=== PATIENT | female | born 1980 | race African-American/Black ===

== ENCOUNTER 2017-03-19 18:30 | Emergency (ER) | payer OTHER ==
[2017-03-19 18:38] VITALS: BP 104/59; PULSE 76; TEMP 98; BMI 26.6
[2017-03-19 19:06] LABS: PH,URINE 5.5 (4.5-8); URINE APPEARANCE Slightly; URINE BILIRUBIN 1+ (NEGATIVE); URINE GLUCOSE (UA) Negative (NEGATIVE); URINE KETONE Trace (NEGATIVE); URINE LEUK ESTERASE Negative (NEGATIVE); URINE NITRITE Negative (NEGATIVE); URINE UROBILINOGEN 0.2 (0.2-1.0)
[2017-03-19 19:12] LABS: URINE BLOOD 3+ (NEGATIVE); URINE COLOR YELLOW; URINE PROTEIN 1+ (NEGATIVE)
[2017-03-19] MEDS ORDERED: SODIUM CHLORIDE 1,000 ML IV STA (19:30)
[2017-03-19] MEDS ORDERED: ONDANSETRON 4 MG/2 ML VIAL IVPB ONE (19:30)
[2017-03-19] MEDS ORDERED: FAMOTIDINE 20 MG/50 ML IVPB 50 ML IVPB ONE ×2 (19:30→20:12)
[2017-03-19 20:11] LABS: URINE RBC >100 /hpf (0-3)
[2017-03-19] MEDS ORDERED: ONDANSETRON 4 MG/2 ML VIAL ONE (20:13)
--- NOTE | 2017-03-19 20:18 | PDOC ---
History of Present Illness - General Chief Complaint: Vomiting/Diarrhea Stated Complaint: NAUSEA, VOMITING, DIARRHEA, CHILLS Time Seen by Provider: 03/19/17 19:16 - History of Present Illness Initial Comments: 03/19/17 20:15 "The patient is a 37 year old female with no significant past medical history who presents to the ED with complaints of vomiting and diarrhea since earlier today. The patient reports she developed chills and diffuse abdominal cramps 2 hours ago. She reports 2 episodes of nonbloody vomiting and 2 episodes of watery brown stool. She also reports lightheadedness associated with present symptoms. Patient notes she is currently on her menstrual period. Denies fever. Denies dysuria or changes in urinary output. Denies chest pain or palpitations. Denies cough or shortness of breath. Denies any other symptoms. " Past History - Past Medical History Allergies/Adverse Reactions: Allergies Allergy/AdvReac Type Severity Reaction Status Date / Time No Known Allergies Allergy Verified 03/19/17 18:33 Home Medications: Ambulatory Orders NK [No Known Home Medication] 03/19/17 - Reproductive History Is Patient Now?: No - Psycho/Social/Smoking Cessation Hx Anxiety: No Suicidal Ideation: No Smoking History: Never smoked Hx Alcohol Use: Yes (OCCASIONAL) Drug/Substance Use Hx: No Substance Use Type: None Review of Systems - Review of Systems Comments:: 03/19/17 20:16 " GENERAL/CONSTITUTIONAL + chills: No fever. No weakness. HEAD, EYES, EARS, NOSE AND THROAT: No change in vision. No ear pain or discharge. No sore throat. CARDIOVASCULAR: No chest pain or shortness of breath. RESPIRATORY: No cough, wheezing, or hemoptysis. GASTROINTESTINAL:+ vomiting, diarrhea, abdominal cramps. No constipation. GENITOURINARY: No dysuria, frequency, or change in urination. MUSCULOSKELETAL: No joint or muscle swelling or pain. No neck or back pain. SKIN: No rash NEUROLOGIC: No headache, vertigo, loss of consciousness ENDOCRINE: No increased thirst. No abnormal weight change. HEMATOLOGIC/LYMPHATIC: No anemia, easy bleeding, or history of blood clots. ALLERGIC/IMMUNOLOGIC: No hives or skin allergy." *Physical Exam - Vital Signs Last Vital Signs Temp Pulse Resp BP Pulse Ox 98.0 F 76 15 104/59 99 03/19/17 18:33 03/19/17 18:33 03/19/17 18:33 03/19/17 18:33 03/19/17 18:33 - Physical Exam Comments: 03/19/17 20:16 "GENERAL: Awake, alert, and fully oriented, in no acute distress HEAD: No signs of trauma EYES: PERRLA, EOMI, sclera anicteric, conjunctiva clear ENT: Auricles normal inspection, hearing grossly normal, nares patent, oropharynx clear without exudates. Moist mucosa NECK: Normal ROM, supple, no lymphadenopathy, JVD, or masses LUNGS: Breath sounds equal, clear to auscultation bilaterally. No wheezes, and no crackles HEART: Regular rate and rhythm, normal S1 and S2, no murmurs, rubs or gallops ABDOMEN: Soft, nontender, normoactive bowel sounds. No guarding, no rebound. No masses EXTREMITIES: Normal range of motion, no edema. No clubbing or cyanosis. No cords, erythema, or tenderness NEUROLOGICAL: Cranial nerves II through XII grossly intact. Normal speech, normal gait SKIN: Warm, Dry, normal turgor, no rashes or lesions noted. " ED Treatment Course - LABORATORY CBC & Chemistry Diagram: 03/19/17 19:00 03/19/17 19:00 - ADDITIONAL ORDERS Additional order review: Laboratory Results 03/19/17 19:00 Urine Color Yellow Urine Appearance Slightly Urine pH 5.5 Ur Specific [place] 1.025 Urine Protein 1+ H Urine Glucose (UA) Negative Urine Ketones Trace Urine Blood 3+ H Urine Nitrite Negative Urine Bilirubin 1+ H Urine Urobilinogen 0.2 Ur Leukocyte Esterase Negative Urine RBC >100 Urine WBC 3-5 Ur Epithelial Cells 0-3 Urine HCG, Qual Negative Medical Decision Making - Medical Decision Making 03/19/17 20:16 37 F with N+V+D x 2 hours. Likely viral gastroenteritis. Pt with completely benign abdominal exam. No lower abdominal tenderness to suggest pelvic pathology. - Labs, UA - IVF, GI cocktail - PO challenge 03/19/17 22:20 CBC,CMP WBC 12.9 K/mm3 (4.0-10.8) H 03/19/17 19:00 RBC 4.06 M/mm3 (3.60-5.2) 03/19/17 19:00 Hgb 13.1 GM/dl (10.7-15.3) 03/19/17 19:00 Hct 40.5 % (32.4-45.2) 03/19/17 19:00 MCV 99.6 fl (80-96) H 03/19/17 19:00 MCH 32.2 pg (25.7-33.7) 03/19/17 19:00 MCHC 32.3 g/dl (32.0-36.0) 03/19/17 19:00 RDW 12.5 % (11.6-15.6) 03/19/17 19:00 Plt Count 244 K/MM3 (134-434) 03/19/17 19:00 MPV 10.3 fl (7.5-11.1) 03/19/17 19:00 Neutrophils % 85.9 % (42.8-82.8) H 03/19/17 19:00 Lymphocytes % 11.2 % (8-40) 03/19/17 19:00 Monocytes % 2.8 % (3.8-10.2) L 03/19/17 19:00 Eosinophils % 0.1 % (0-4.5) 03/19/17 19:00 Basophils % 0.0 % (0-2.0) 03/19/17 19:00 Sodium 134 mmol/L (136-145) L 03/19/17 19:00 Potassium 4.0 mmol/L (3.5-5.1) 03/19/17 19:00 Chloride 100 mmol/L (98-107) 03/19/17 19:00 Carbon Dioxide 25 mmol/L (22-28) 03/19/17 19:00 Anion Gap 9 (8-16) 03/19/17 19:00 BUN 18 mg/dl (7-18) 03/19/17 19:00 Creatinine 0.8 mg/dl (0.6-1.3) 03/19/17 19:00 Creat Clearance w eGFR > 60 (>60) 03/19/17 19:00 Random Glucose 103 mg/dl (74-106) 03/19/17 19:00 Calcium 8.4 mg/dl (8.4-10.2) 03/19/17 19:00 Total Bilirubin 0.2 mg/dl (0.2-1.0) 03/19/17 19:00 AST 22 U/L (10-42) 03/19/17 19:00 ALT 13 U/L (10-40) 03/19/17 19:00 Alkaline Phosphatase 55 U/L (32-92) 03/19/17 19:00 Total Protein 6.9 g/dl (6.4-8.3) 03/19/17 19:00 Albumin 3.5 g/dl (3.5-5.0) 03/19/17 19:00 Lipase 31 U/L (22-51) 03/19/17 19:00 Pt reassessed s/p fluids and GI cocktail - now feels much better, has not vomited since being in ER. Able to tolerate PO. Repeat Abdominal exam benign. Stable for DC home. *DC/Admit/Observation/Transfer Diagnosis at time of Disposition: Gastroenteritis - Discharge Dispostion Disposition: HOME Condition at time of disposition: Good Admit: No - Patient Instructions Printed Discharge Instructions: Viral Gastroenteritis Additional Instructions: Drink plenty of fluids to stay hydrated. Follow up with your primary care doctor in 1-2 weeks. If you experience severe abdominal pain, persistent nausea and vomiting, or any other concerning symptoms, return to the ER immediately. - Post Discharge Activity Work/School Note: Back to Work - Attestations Physician Attestion: 03/19/17 22:23 I, Dr. Gee Corrales MD, attest that this document has been prepared under my direction and personally reviewed by me in its entirety. I further attest, that it accurately reflects all work, treatment, procedures and medical decision -making performed by me.
[2017-03-19 20:27] LABS: EOSINOPHIL 0.1 % (0-4.5); MCH 32.2 pg (25.7-33.7); MCHC 32.3 g/dl (32.0-36.0); MEAN CELL VOLUME 99.6 fl (80-96); MEAN PLT VOLUME 10.3 fl (7.5-11.1); NEUTROPHILS 85.9 % (42.8-82.8); PLATELET COUNT 244 K/MM3 (134-434); RDW 12.5 % (11.6-15.6); WHITE BLOOD COUNT 12.9 K/mm3 (4.0-10.8)
[2017-03-19 20:39] LABS: ALBUMIN 3.5 g/dl (3.5-5.0); ALK PHOS 55 U/L (32-92); ANION GAP 9 (8-16); BILIRUBIN,TOTAL 0.2 mg/dl (0.2-1.0); CALCIUM 8.4 mg/dl (8.4-10.2); CO2 25 mmol/L (22-28); CREATININE 0.8 mg/dl (0.6-1.3); GLUCOSE,RANDOM 103 mg/dl (74-106); SGOT/AST 22 U/L (10-42); SGPT/ALT 13 U/L (10-40); TOT PROT 6.9 g/dl (6.4-8.3)
[2017-03-19] MEDS ORDERED: MAG HYDROX/AL HYDROX/SIMETH 30 ML UNIT-DOSE CUP ONE (22:54)
== END 2017-03-19 22:27 | disposition home or self-care (01) ==
LOC: FER 18:30
PROC: 3E033GC Introduction of Other Therapeutic Substance into Peripheral Vein, Percutaneous Approach (ICD-10-PCS; principal; 2017-03-19)
PROC: 3E0337Z Introduction of Electrolytic and Water Balance Substance into Peripheral Vein, Percutaneous Approach (ICD-10-PCS; 2017-03-19)
DX: A08.4 Viral intestinal infection, unspecified (principal)
CPT/HCPCS: 36415; 80053; 81003; 81015; 83690; 84703; 85025; 99282-25